=== PATIENT | male | born 1970 | race Two or more races ===

== ENCOUNTER 2016-10-06 14:34 | Emergency (ER) | payer OTHER ==
[~2016-10-06] VITALS: Ht 172.7 cm; Wt 77.1 kg
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
== END 2016-10-06 17:33 | disposition home or self-care (01) ==
LOC: CED 14:34
DX: S06.0X0A Concussion without loss of consciousness, initial encounter (principal); E11.9 Type 2 diabetes mellitus without complications; I10 Essential (primary) hypertension; Y04.0XXA Assault by unarmed brawl or fight, initial encounter
CPT/HCPCS: 70450; 99283